=== PATIENT | female | born 1955 | race Hispanic/Latino ===

== ENCOUNTER 2017-05-04 09:04 | Emergency (ER) | payer OTHER ==
[~2017-05-04] VITALS: Ht 165.1 cm; Wt 96.2 kg
[~2017-05-04 09:04] MED LIST: ADVAIR 250/501 DISK; ADVAIR 250/501 DISK IH; ALBUTEROL17 GM IH; AMITRIPTYLINE H75 MG PO; AMLODIPINE BESY10 MG PO; ASPIR-TRIN325 M1 PO; AVENTYL,PAMELOR50 MG PO; BACTRIM,SEPT1 TABLET PO; CUPRIMINE PO; Combivent IH; DELTASONE20 MG PO; DEXILANT60 MG PO; DOXYCYCLINE HY100 M3 PO; EVOXAC30 MG PO; FLONASE16 G1 BOTH NARES; GABAPENTIN100 MG PO; GLUCOPHAGE500 MG PO; HYCODAN SYRUP5 ML PO; KEFLEX500 MG PO; LEVAQUIN500 MG PO; LIDODERM 5% P1 PATCH TD; LORTAB 10-3251 EACH PO; LYRICA150 MG; LYRICA150 MG PO; LYRICA75 MG PO; MAXALT10 MG PO; PAMELOR50 MG PO; PHENERGAN-CODE120 ML PO; PILOCARPINE HC7.5 MG PO; PLAVIX75 MG PO; PREDNISONE PO; PREDNISONE10 MG PO; PREDNISONE20 MG PO; PROAIR HFA8.5 GM IH; PROCARDIA XL90 MG PO; Procardia XL,Adalat PO; Proventil,Ventolin H IH; REGLAN10 MG PO; REGLAN5 MG; Reglan PO; SALAGEN PO; SIMVASTATIN40 MG PO; SINGULAIR10 MG PO; Singulair PO; TAMIFLU75 MG PO; TRAMADOL HCL50 MG PO; TYLENOL REGULA325 MG PO; ULTRAM50 MG PO; VESICARE5 MG PO; VITAMIN D1000 INTUN PO; VITAMIN D1000 UNIT PO; [UNRECOGNIZED DRUG - OTHER]; [UNRECOGNIZED DRUG - OTHER] PO
[2017-05-04] MEDS ORDERED: NORCO 5/3251 TABLET PO (10:26)
[2017-05-04] MEDS ORDERED: MOTRIN800 MG PO (10:26)
[2017-05-04 10:37] VITALS: BP 148/75
== END 2017-05-04 10:38 | disposition home or self-care (01) ==
LOC: EME 09:04
DX: M25.512 Pain in left shoulder (principal); M06.9 Rheumatoid arthritis, unspecified; M34.9 Systemic sclerosis, unspecified; I10 Essential (primary) hypertension; J45.909 Unspecified asthma, uncomplicated
CPT/HCPCS: 73030; 99281; 99283